=== PATIENT | female | born 1960 | race American Indian/Alaskan Native ===

== ENCOUNTER 2017-07-14 07:55 | Outpatient (CLI) | payer BC ==
[2017-07-14 08:29] LABS: Basophils # (Auto) 0.1 K/mm3 (0.0-0.1); Basophils % (Auto) 1.2 % (0.0-1.8); Eosinophils # (Auto) 0.4 K/mm3 (0.0-0.4); Eosinophils % (Auto) 9.2 % (0.0-4.3); Hematocrit 43.2 % (30.3-42.9); Lymphocytes # (Auto) 1.2 K/mm3 (1.2-5.4); Lymphocytes % (Auto) 26.3 % (13.4-35.0); Mean Corpuscular HGB Conc 32 % (30-34); Mean Corpuscular Hemoglobin 27 pg (28-32); Mean Corpuscular Volume 82 fl (79-97); Monocytes # (Auto) 0.5 K/mm3 (0.0-0.8); Monocytes % (Auto) 11.5 % (0.0-7.3); Platelet Count 167 K/mm3 (140-440); Red Blood Count 5.28 M/mm3 (3.65-5.03); Red Cell Distribution Width 13.7 % (13.2-15.2)
[2017-07-14 08:49] LABS: Bilirubin,Urine NEG (Negative); Blood,Urine NEG (Negative); Color,Urine Yellow (Yellow); Mucus,Urine FEW /HPF; Protein,Urine <15 mg/dL mg/dL (Negative); Urobilinogen,Urine < 2.0 mg/dL (<2.0); WBC,Urine < 1.0 /HPF (0.0-6.0)
[2017-07-14 08:50] LABS: Alanine Aminotransferase 15 units/L (7-56); Albumin 4.3 g/dL (3.9-5); BUN/Creatinine Ratio 15; Blood Urea Nitrogen 12 mg/dL (7-17); Calcium 9.6 mg/dL (8.4-10.2); Chol/HDL Ratio 3.35 %; HDL Cholesterol 60 mg/dL (40-59); Hemolysis Index 5; LDL Cholesterol,Direct 133 mg/dL (50-130)
--- NOTE | 2017-07-15 02:51 | Procedure Note ---
TREADMILL STRESS TEST INDICATION: Chest pain. ORDERING PHYSICIAN: Bailey Jasso APRN PROCEDURE: After obtaining written consent, the patient exercised on a Chip protocol. The total exercise time was 10 minutes. The patient achieved 10.9 mets. Baseline blood pressure was 118/78. Peak blood pressure was 168/88. Baseline heart rate was 68 beats per minute and the peak heart rate was 163 beats per minute, which represents 101% of the maximum age predicted heart rate. No limiting chest pain or shortness of breath were reported. No ischemic EKG changes were recorded. Test was terminated after peak heart rate was achieved. IMPRESSION: This is a normal stress test with no evidence of ischemic EKG changes. RECOMMENDATION: Low risk study associated with a 1-year cardiovascular event rate of less than 1%. JOB# [id number] MOOK/ART
== END 2017-07-14 07:56 | disposition home or self-care (01) ==
LOC: CARD 07:55
PROVIDERS: ATTEND Nurse Practitioner Family
DX: Z13.220 Encounter for screening for lipoid disorders (principal); Z13.21 Encounter for screening for nutritional disorder; Z13.29 Encounter for screening for other suspected endocrine disorder; I10 Essential (primary) hypertension; I07.1 Rheumatic tricuspid insufficiency; I37.1 Nonrheumatic pulmonary valve insufficiency; R94.31 Abnormal electrocardiogram [ECG] [EKG]
CPT/HCPCS: 36415; 80053; 80061; 81001; 82306; 84443; 85025; 93017; 93306; 93922

== ENCOUNTER 2018-03-08 14:00 | Outpatient (CLI) | payer BC ==
--- NOTE | 2018-03-14 10:15 | Mammography Report ---
BILATERAL DIGITAL SCREENING MAMMOGRAM with CAD: 03/08/18 14:00:00 CLINICAL: Routine screening.Family history of breast cancer. Right breast cancer in her mother at age 40 and left breast cancer in her mother at age 60. COMPARISON: 03/07/17 FINDINGS: There are bilateral scattered areas of fibroglandular density.No mass, architectural distortion or suspicious calcifications. IMPRESSION: No mammographic evidence of malignancy. BI-RADS CATEGORY: 1 -- Negative RECOMMENDATION: Routine mammographic screening in one year. COMMENT: Patient follow-up letters are generated by our [employer] application.
== END 2018-03-08 14:01 | disposition home or self-care (01) ==
LOC: SPVWC 14:00
PROVIDERS: ATTEND Surgery
DX: Z12.31 Encounter for screening mammogram for malignant neoplasm of breast (principal)
CPT/HCPCS: 77067

== ENCOUNTER 2018-07-03 06:59 | Outpatient (CLI) | payer BC ==
[2018-07-03 08:01] LABS: Alanine Aminotransferase 18 units/L (7-56); Albumin 4.5 g/dL (3.9-5); BUN/Creatinine Ratio 16; Blood Urea Nitrogen 11 mg/dL (7-17); Calcium 9.3 mg/dL (8.4-10.2); Hemolysis Index 2
[2018-07-03 08:05] LABS: Free T4 (Free Thyroxine) 0.95 ng/dL (0.76-1.46)
[2018-07-11 06:17] LABS: Vitamin D, 25-OH, D2 SEE SCANNED RESULT
== END 2018-07-03 07:00 | disposition home or self-care (01) ==
LOC: LAB 06:59
PROVIDERS: ATTEND Nurse Practitioner Family
DX: E55.9 Vitamin D deficiency, unspecified (principal); I10 Essential (primary) hypertension; E03.8 Other specified hypothyroidism; E78.00 Pure hypercholesterolemia, unspecified; Z90.721 Acquired absence of ovaries, unilateral
CPT/HCPCS: 36415; 80053; 82306; 84439; 84443

== ENCOUNTER 2018-10-23 07:06 | Outpatient (CLI) | payer BC ==
[2018-10-23 17:50] LABS: Alanine Aminotransferase 17 units/L (7-56); Albumin 4.3 g/dL (3.9-5); BUN/Creatinine Ratio 21; Blood Urea Nitrogen 15 mg/dL (7-17); Calcium 9.8 mg/dL (8.4-10.2); Hemolysis Index 3
[2018-10-27 18:11] LABS: Vitamin D, 25-OH, D2 <4 ng/mL
== END 2018-10-23 07:07 | disposition home or self-care (01) ==
LOC: LAB 07:06
PROVIDERS: ATTEND Family Medicine
DX: E55.9 Vitamin D deficiency, unspecified (principal); R73.09 Other abnormal glucose; E78.00 Pure hypercholesterolemia, unspecified; I10 Essential (primary) hypertension
CPT/HCPCS: 36415; 80053; 82306; 83036; 84443

== ENCOUNTER 2018-11-21 09:01 | Outpatient (CLI) | payer BC ==
--- NOTE | 2018-11-21 16:02 | Ultrasound Report ---
THYROID ULTRASOUND HISTORY: ABNORMAL TSH COMPARISON: None TECHNIQUE: Routine sonographic images were obtained of the thyroid. FINDINGS: Right thyroid lobe: Normal echogenicity with a normal contour. No nodule or cyst. The right thyroid lobe measures 4.0 x 0.9 x 1.5 cm. Isthmus: Normal. The isthmus measures 2.2 mm. Left thyroid lobe: Normal echogenicity with a normal contour. No nodule or cyst. The left thyroid lo be measures 4.0 x 1.0 x 1.2 cm. Additional Findings: None. IMPRESSION: 1. Normal thyroid. Signer Name: Fabien Chairez MD Signed: 11/21/2018 3:57 PM Workstation Name: [id number]
== END 2018-11-21 09:02 | disposition home or self-care (01) ==
LOC: SPVWC 09:01
PROVIDERS: ATTEND Family Medicine
DX: R79.89 Other specified abnormal findings of blood chemistry (principal); E78.00 Pure hypercholesterolemia, unspecified; I10 Essential (primary) hypertension
CPT/HCPCS: 76536

== ENCOUNTER 2019-02-21 10:26 | Outpatient (CLI) | payer BC ==
--- NOTE | 2019-02-21 16:31 | Ultrasound Report ---
BILATERAL DIGITAL DIAGNOSTIC MAMMOGRAM WITH CAD 02/21/2019 BILATERAL LIMITED BREAST ULTRASOUND INDICATION: Bilateral breast lumps felt by her doctor. 2 CM BREAST CYST LEFT/ 1 CM NODULE RIGHT TECHNIQUE: Digital bilateral mammographic imaging was performed. Limited ultrasound was performed. T his examination was interpreted with the benefit of Computer-Aided Detection (CAD) analysis. COMPARISON: 03/08/2018 FINDINGS: Breast Density: There are scattered areas of fibroglandular density. MAMMOGRAPHIC FINDINGS: There is no evidence of dominant mass, suspicious calcifications or architectu ral distortion in either breast. ULTRASOUND FINDINGS: Targeted ultrasound evaluation was performed of the area of interest. Ultrasou nd of the right breast demonstrated a round relatively smooth anechoic lesion at 9:00 2 cm from the n ipple measuring 4 x 4 by 4 mm. It demonstrates some shadowing and has an echogenic focus in the wall. Ultrasound of the left breast demonstrated an oval relatively smooth complex cyst versus solid mass at 1:30 o'clock 2 cm from the nipple measuring 4 x 3 x 4 mm. It demonstrates mild shadowing. IMPRESSION: 1. A 4 mm relatively anechoic lesion at 9:00 2 cm from the nipple. Sonographic features suggest a ruth ign oil cyst. 2. A 4 mm complex cyst versus solid mass at 1:30 o'clock 2 cm from the nipple. 3. Recommend short-term follow-up bilateral targeted breast ultrasound. Follow up recommendation: Short term interval follow up BI-RADS Category 3: Probably Benign. Followup in 3 months. A "normal" or negative report should not discourage follow up or biopsy of a clinically significant f inding. A written summary of these findings will be mailed to the patient. The patient will be entered into a mammography reporting system which will generate a reminder letter for the patient's next appointmen t at the appropriate interval. According to the [employer], yearly mammograms are recommended starting at age 40 and continuing as long as a woman is in good health. Breast MRI is recommended for women with an avril roximately 20-25% or greater lifetime risk of breast cancer, including women with a strong family his tory of breast or ovarian cancer and women who have been treated for Hodgkin's disease. Signer Name: Fabien Chairez MD Signed: 02/21/2019 4:26 PM Workstation Name: [id number]
== END 2019-02-21 10:27 | disposition home or self-care (01) ==
LOC: SPVWC 10:26
PROVIDERS: ATTEND Family Medicine
DX: N60.01 Solitary cyst of right breast (principal); N60.02 Solitary cyst of left breast
CPT/HCPCS: 77066

== ENCOUNTER 2019-07-09 10:01 | Outpatient (CLI) | payer BC ==
--- NOTE | 2019-07-10 08:42 | Ultrasound Report ---
LIMITED BILATERAL BREAST ULTRASOUND HISTORY: Six-month follow-up bilateral breast masses. COMPARISON: 02/21/2019 FINDINGS: Focused sonographic evaluation upon the 9:00 2 cm from the nipple location of the right billy ast demonstrates an oval mass with a more irregular margin and increased internal echoes compared to the last exam. It measures 4 x 4 by 4 mm and has not changed in size. Echogenic foci within the wall and mild shadowing are unchanged. Focused sonographic evaluation upon the 1:30 o'clock 2 cm location of the left breast demonstrates a stable oval relatively smooth complex cyst versus solid mass measuring 4 x 3 x 4 mm. IMPRESSION: 1. A 4 x 4 by 4 mm solid right breast mass at 9:00 2 cm from the nipple. Recommend ultrasound-guided needle biopsy to exclude malignancy. 2. A stable solid 4 x 3 x 4 mm left breast mass at 1:30 o'clock 2 cm from the nipple. Recommend ultra sound-guided needle biopsy to confirm benignity. Recommendation: Bilateral ultrasound-guided breast biopsy BIRADS 4: Suspicious abnormality. Signer Name: Fabien Chairez MD Signed: 07/10/2019 8:38 AM Workstation Name: [id number]
== END 2019-07-09 10:02 | disposition home or self-care (01) ==
LOC: SPVWC 10:01
PROVIDERS: ATTEND Surgery
DX: N63.41 Unspecified lump in right breast, subareolar (principal); N63.21 Unspecified lump in the left breast, upper outer quadrant

== ENCOUNTER 2019-08-07 12:30 | Outpatient (CLI) | payer BC ==
--- NOTE | 2019-08-07 15:31 | Mammography Report ---
DIGITAL DIAGNOSTIC MAMMOGRAM WITH CAD, 08/07/2019 INDICATION: POST CLIP RT TECHNIQUE: Digital right mammographic imaging was performed. This examination was interpreted with the benefit of Computer-aided Detection analysis. COMPARISON: 02/21/2019 FINDINGS: Breast Density: There are scattered areas of fibroglandular density. A biopsy clip at 9:00 correlates with the site of today's biopsy. IMPRESSION: Concordant clip placement. Follow up recommendation: No recall. Post biopsy imaging. A "normal" or negative report should not discourage follow up or biopsy of a clinically significant f inding. A written summary of these findings will be mailed to the patient. The patient will be entered into a mammography reporting system which will generate a reminder letter for the patient's next appointmen t at the appropriate interval. According to the [employer], yearly mammograms are recommended starting at age 40 and continuing as long as a woman is in good health. Breast MRI is recommended for women with an avril roximately 20-25% or greater lifetime risk of breast cancer, including women with a strong family his tory of breast or ovarian cancer and women who have been treated for Hodgkin's disease. Signer Name: Fabien Chairez MD Signed: 08/07/2019 3:27 PM Workstation Name: [id number]
--- NOTE | 2019-08-07 15:35 | Ultrasound Report ---
ULTRASOUND-GUIDED NEEDLE CORE BIOPSY RIGHT BREAST WITH CLIP PLACEMENT CLINICAL: 4 mm mass at 9:00 2 cm from the nipple. FINDINGS: The procedure was explained to the patient and informed consent was obtained. Ultrasound demonstrated the previously identified mass.. I marked the breast with a felt tip marker and a timeout was called. The skin was prepped with Chloro -Prep and anesthetized with 1% lidocaine. Needle core biopsy was performed through small dermatotomy using ultrasound guidance, 2% lidocaine wi th epinephrine for deep anesthesia and a 14-gauge Achieve biopsy device. 3 cores were obtained and pl aced in formalin. The lesion showed significant collapse with sampling. A clip was deployed within th e lesion. The patient tolerated the procedure well and there were no apparent complications. Hemostasis was ach ieved with minimal effort and a sterile dressing was applied. A post procedure mammogram demonstrated concordant clip deployment. She left the department in good c ondition and was given instructions for wound care and follow-up. IMPRESSION: Uncomplicated ultrasound guided needle core biopsy with clip placement right breast. Signer Name: Fabien Chairez MD Signed: 08/07/2019 3:31 PM Workstation Name: [id number]
== END 2019-08-07 12:31 | disposition home or self-care (01) ==
LOC: SPVWC 12:30
PROVIDERS: ATTEND Surgery
DX: N63.11 Unspecified lump in the right breast, upper outer quadrant (principal); Z88.2 Allergy status to sulfonamides; Z79.899 Other long term (current) drug therapy; Z88.8 Allergy status to other drugs, medicaments and biological substances; Z86.010 Personal history of colon polyps
CPT/HCPCS: 88305

== ENCOUNTER 2020-06-22 13:47 | Outpatient (CLI) | payer BC ==
--- NOTE | 2020-06-22 16:19 | Mammography Report ---
DIGITAL SCREENING MAMMOGRAM WITH CAD, 06/22/2020 CLINICAL INFORMATION / INDICATION: Routine screening mammography. History of benign bilateral breast biopsies in 2019 TECHNIQUE: Digital bilateral 2D mammography was obtained in the craniocaudal and mediolateral obliqu e projections. This examination was interpreted with the benefit of Computer-Aided Detection analysis . COMPARISON: 02/21/2019 FINDINGS: Breast Density: There are scattered areas of fibroglandular density. No dominant mass, suspicious calcifications, or architectural distortion in either breast. Postsurgical scars, right breast. Bilateral biopsy clips are present. IMPRESSION: No mammographic evidence of malignancy. Follow up recommendation: Routine yearly BI-RADS Category 2: Benign. A "normal" or negative report should not discourage follow up or biopsy of a clinically significant f inding. A written summary of these findings will be mailed to the patient. The patient will be entered into a mammography reporting system which will generate a reminder letter for the patient's next appointmen t at the appropriate interval. The [employer] recommends yearly mammograms starting at age 40 and continuing as l bhavani as a woman is in good health. Breast MRI is recommended for women with an approximate 20-25% or greater lifetime risk of breast cancer, including women with a strong family history of breast or ova smitha cancer or who have been treated for Hodgkin's disease. Signer Name: Manda Ferro MD Signed: 06/22/2020 4:15 PM Workstation Name: [id number]
== END 2020-06-22 13:48 | disposition home or self-care (01) ==
LOC: SPVWC 13:47
PROVIDERS: ATTEND Obstetrics & Gynecology Obstetrics
DX: Z12.31 Encounter for screening mammogram for malignant neoplasm of breast (principal)
CPT/HCPCS: 77067

== ENCOUNTER 2020-09-22 08:53 | Outpatient (CLI) | payer BC ==
--- NOTE | 2020-09-23 09:23 | Magnetic Resonance Report ---
MRI BREAST BILATERAL WITH AND WITHOUT CONTRAST, 09/22/2020 CLINICAL INFORMATION / INDICATION: BREAST PAIN/FAMILY HX BREAST CANCER. TECHNIQUE: Axial T1 and T2-weighted fat sat images were obtained precontrast. Gadolinium-based contra st was injected intravenously and serial axial T1 weighted images with fat saturation were obtained. 3-D MIP projections, kinetic analysis, and subtraction imaging were utilized to evaluate. A dedicated 8-channel breast coil was used for image acquisition. COMPARISON: Screening mammogram dated 06/22/2020. FINDINGS: BREAST DENSITY: Scattered areas of fibroglandular density. BACKGROUND ENHANCEMENT: Low level background enhancement within both breasts. RIGHT BREAST: No dominant mass or suspicious area of enhancement in the right breast. Scarring is not ed anteriorly and centrally along the right breast. LEFT BREAST: No dominant mass or suspicious area of enhancement in the left breast. Scarring is noted along the upper outer left breast anteriorly. AXILLAE: No pathologically enlarged axillary lymph nodes. ADDITIONAL FINDINGS: Limited imaging of the thorax and upper abdomen demonstrates no focal abnormalit y. IMPRESSION: 1. No MRI evidence of malignancy. Follow up recommendation: Back to schedule. BI-RADS Category 2: Benign. Signer Name: Jesse Denney MD Signed: 09/23/2020 9:19 AM Workstation Name: [id number]
== END 2020-09-22 08:54 | disposition home or self-care (01) ==
LOC: SPVIMAG 08:53
PROVIDERS: ATTEND Surgery
DX: N64.89 Other specified disorders of breast (principal); Z80.3 Family history of malignant neoplasm of breast
CPT/HCPCS: A9575; C8908; 77049

== ENCOUNTER 2021-10-13 08:24 | Outpatient (CLI) | payer BC ==
[2021-10-13 09:42] LABS: Eosinophils # (Auto) 0.2 K/mm3 (0.0-0.4); Eosinophils % (Auto) 4.4 % (0.0-4.3); Hematocrit 46.6 % (30.3-42.9); Hemoglobin 14.8 gm/dl (10.1-14.3); Lymphocytes # (Auto) 1.4 K/mm3 (1.2-5.4); Lymphocytes % (Auto) 30.4 % (13.4-35.0); Mean Corpuscular HGB Conc 32 % (30-34); Mean Corpuscular Volume 82 fl (79-97); Monocytes # (Auto) 0.5 K/mm3 (0.0-0.8); Monocytes % (Auto) 9.9 % (0.0-7.3); Platelet Count 196 K/mm3 (140-440); Red Blood Count 5.65 M/mm3 (3.65-5.03); Red Cell Distribution Width 13.6 % (13.2-15.2)
[2021-10-13 10:02] LABS: Alanine Aminotransferase 18 units/L (7-56); Albumin 4.8 g/dL (3.9-5); BUN/Creatinine Ratio 11; Blood Urea Nitrogen 10 mg/dL (7-17); Calcium 9.7 mg/dL (8.4-10.2); Chol/HDL Ratio 3.76 %; HDL Cholesterol 60 mg/dL (40-59); Hemolysis Index 3; LDL Cholesterol,Direct 155 mg/dL (50-130)
[2021-10-13 10:13] LABS: Free T4 (Free Thyroxine) 0.89 ng/dL (0.76-1.46)
== END 2021-10-13 08:25 | disposition home or self-care (01) ==
LOC: LAB 08:24
PROVIDERS: ATTEND Family Medicine
DX: Z00.01 Encounter for general adult medical examination with abnormal findings (principal)
CPT/HCPCS: 36415; 80053; 80061; 82306; 84439; 84443; 85025